=== PATIENT | male | born 1990 | race Caucasian/White ===

== ENCOUNTER 2018-04-12 20:42 | Emergency (ER) | payer SELFPAY ==
[~2018-04-12] VITALS: Ht 170.2 cm; Wt 68.0 kg
--- NOTE | 2018-04-12 20:42 | NUR ---
BB RA FOR OKAY TO BOOK; "I TOOK HEROIN 3 DAYS AGO" IN CUSTODY. VSS NAD WILL CONTINUE TO MONITOR FOR ANY CHANGES DURING THE SHIFT. PT IS DROWSY
[2018-04-12] MEDS ORDERED: NALOXONE PREFILLED SYRINGE 2 MG/2 ML SYRINGE ONE (20:50)
[2018-04-12] MEDS ORDERED: NALOXONE HCL 0.4 MG/ML AMPUL IM ONE (21:00)
--- NOTE | 2018-04-12 21:00 | NUR ---
PT IS AGITATED AFTER NARCAN
--- NOTE | 2018-04-12 23:25 | NUR ---
PT IS AGITATED. WILL CONTINUE TO MONITOR FOR CHANGES
--- NOTE | 2018-04-13 00:47 | NUR ---
PT IS SLEEPING IN BED
[2018-04-13 05:41] VITALS: BP 110/64
== END 2018-04-13 05:42 | disposition home or self-care (01) ==
LOC: ER 20:48
DX: T40.1X1A Poisoning by heroin, accidental (unintentional), initial encounter (principal); F15.10 Other stimulant abuse, uncomplicated; F19.10 Other psychoactive substance abuse, uncomplicated; Y92.89 Other specified places as the place of occurrence of the external cause
CPT/HCPCS: A4606; J2310; Z7610

== ENCOUNTER 2021-05-25 06:31 | Emergency (ER) | payer OTHER ==
[~2021-05-25] VITALS: Ht 180.3 cm; Wt 72.6 kg
[2021-05-25 06:38] VITALS: BP 107/61
--- NOTE | 2021-05-25 07:30 | NUR ---
Patient discharged to home in stable condition. Written and verbal after care instructions given. Patient verbalizes understanding of instruction.
== END 2021-05-25 07:30 | disposition home or self-care (01) ==
LOC: ER 06:31
DX: S01.81XD Laceration without foreign body of other part of head, subsequent encounter (principal); X58.XXXD Exposure to other specified factors, subsequent encounter

== ENCOUNTER 2023-02-07 09:47 | Emergency (ER) | payer OTHER ==
[~2023-02-07] VITALS: Ht 180.3 cm; Wt 68.0 kg
--- NOTE | 2023-02-07 10:01 | NUR ---
C/O BILAT HAND SWELLING FOR 1 WEEK. DENIES TRAUMA.
[2023-02-07] MEDS ORDERED: SULF1TAB48 PO (10:44)
[2023-02-07] MEDS ORDERED: CEPH500C2 PO (10:44)
[2023-02-07] MEDS ORDERED: NALO4SPR BNOSTRILS (10:44)
--- NOTE | 2023-02-07 10:56 | NUR ---
PT DECIDED TO LEAVE AFTER BEING SEEN BY MD AGAINST MEDICAL ADVICE. PT WAS EXPLAINED THE RISKS OF LEAVING. PT SIGNED AGAINST MEDICAL ADVICE PAPERS.
[2023-02-07 10:57] VITALS: BP 132/77
== END 2023-02-07 10:57 | disposition left against medical advice (07) ==
LOC: ER 09:48
DX: L03.114 Cellulitis of left upper limb (principal); L03.113 Cellulitis of right upper limb; R06.9 Unspecified abnormalities of breathing; Z79.899 Other long term (current) drug therapy; Z59.00 Homelessness unspecified
CPT/HCPCS: 71045-TC; 73130-TC